=== PATIENT | female | born 1975 | race Caucasian/White ===

== ENCOUNTER 2023-09-17 16:44 | Emergency (ER) | payer SELFPAY ==
[~2023-09-17] VITALS: Ht 157.5 cm; Wt 64.0 kg
[2023-09-17 18:08] VITALS: PULSE 95; RESP 25; TEMP 98.3
[2023-09-17] MEDS ORDERED: OLANZapine **IM** 10 mg inj. IM ONE (18:20)
[2023-09-17 19:20] LABS: BASOPHILS % (AUTO) 0.5 % (0-1); EOSINOPHILS # (AUTO) 0.1 X10'3 (0-0.9); HEMATOCRIT 38.9 % (35.0-45.0); HEMOGLOBIN 13.1 g/dl (12.0-16.0); LYMPHOCYTES # (AUTO) 2.4 X10'3 (1.1-4.8); LYMPHOCYTES % (AUTO) 29.9 % (21-51); MEAN CORPUSCULAR HEMOGLOBIN 32.3 PG (27.0-31.0); MEAN CORPUSCULAR HGB CONC 33.6 g/dL (33.0-36.5); MEAN CORPUSCULAR VOLUME 96.1 FL (78-98); MEAN PLATELET VOLUME 6.8 FL (7.4-10.4); MONOCYTES # (AUTO) 0.8 X10'3 (0-0.9); MONOCYTES % (AUTO) 10.5 % (2-12); NEUTROPHILS # (AUTO) 4.6 X10'3 (1.8-7.7); NEUTROPHILS % (AUTO) 58.1 % (42-75); PLATELET COUNT 372 X10'3 (140-440); RED BLOOD COUNT 4.05 X10'6 (4.20-5.60); RED CELL DISTRIBUTION WIDTH 13.4 % (11.5-14.5); WHITE BLOOD COUNT 7.9 X10'3 (4.5-11.0)
[2023-09-17 19:42] LABS: URINE HCG NEGATIVE (NEG)
[2023-09-17 19:43] LABS: ALANINE AMINOTRANSFERASE 33 U/L (12-78); ALBUMIN 3.6 G/DL (3.4-5.0); ALBUMIN/GLOBULIN RATIO 0.9 (1.1-1.5); ALKALINE PHOSPHATASE 93 IU/L (46-116); ANION GAP 10 (8-16); ASPARTATE AMINO TRANSFERASE 22 U/L (10-37); BILIRUBIN,TOTAL 0.4 MG/DL (0.1-1.0); BLOOD UREA NITROGEN 19 MG/DL (7-18); BUN/CREATININE RATIO 22.6 (10.0-20.0); CALCIUM 9.3 MG/DL (8.5-10.1); CHLORIDE 105 MMOL/L (99-107); CREATININE 0.84 MG/DL (0.40-0.90); GLUCOSE 86 MG/DL (70-104); POTASSIUM 3.5 MMOL/L (3.5-5.1); SODIUM 139 MMOL/L (135-145); TOTAL PROTEIN 7.4 G/DL (6.4-8.2); eCRCL 64 ML/MIN; eGFR 72 ML/MIN
[2023-09-17 19:47] LABS: ETHANOL < 10 MG/DL (<10); THYROID STIMULATING HORMONE 6.09 ulU/ml (0.34-4.50)
[2023-09-17 19:57] LABS: URINE AMPHETAMINE SCREEN POSITIVE (Neg); URINE BARBITUATE SCREEN NEGATIVE (Neg); URINE BENZODIAZEPINES SCREEN NEGATIVE (Neg); URINE CANNABINOID SCREEN POSITIVE (Neg); URINE COCAINE SCREEN NEGATIVE (Neg); URINE METHADONE SCREEN NEGATIVE (Neg); URINE OPIATE SCREEN NEGATIVE (Neg); URINE PHENCYCLIDINE SCREEN NEGATIVE (Neg)
[2023-09-17 20:08] LABS: BILIRUBIN,URINE NEGATIVE (Neg); CLARITY,URINE SLIGHTLY CLOUDY (Clear); COLOR,URINE YELLOW (Yellow); GLUCOSE, URINE NEGATIVE (Neg); KETONES,URINE TRACE mg/dl (Neg); LEUKOCYTE ESTERASE ,URINE NEGATIVE (Neg); NITRITES, URINE POSITIVE (Neg); OCCULT BLOOD,URINE SMALL (Neg); PH,URINE 5.5 (4.8-8.0); PROTEIN,URINE NEGATIVE (Neg); UROBILINOGEN,URINE 0.2 E.U/dL (0.2-1.0)
[2023-09-17 20:27] LABS: UA COLLECTION TYPE CLN CATCH MIDSTREAM
[2023-09-17 20:31] LABS: BACTERIA,URINE 2+ /HPF (Neg); CAL OXALATE CRYSTALS 4+ /HPF (NEGATIVE); MUCUS STRANDS MANY /LPF (Neg); SQUAMOUS EPITHELIAL CELL,UR MANY /LPF (FEW); WBC,URINE 0-4 /HPF (0-4)
[2023-09-17 20:33] LABS: HYALINE CASTS 0-3 /LPF (NEGATIVE)
== END 2023-09-17 21:49 | disposition home or self-care (01) ==
LOC: ER 16:45
DX: F15.10 Other stimulant abuse, uncomplicated (principal); Z20.822 Contact with and (suspected) exposure to COVID-19; E03.9 Hypothyroidism, unspecified
CPT/HCPCS: 36415; 80053; 80305; 80320; 81001; 81025; 84443; 85025; 87811; 96372; 99283; J3490

== ENCOUNTER 2023-11-13 13:28 | Emergency (ER) | payer MEDICAID ==
[~2023-11-13] VITALS: Ht 157.5 cm; Wt 66.4 kg
[2023-11-13 13:50] VITALS: BP 126/54; PULSE 69; RESP 16; TEMP 98.7; O2SAT 98
[2023-11-13 14:58] LABS: URINE HCG NEGATIVE (NEG)
[2023-11-13 15:01] LABS: BILIRUBIN,URINE NEGATIVE (Neg); CLARITY,URINE CLEAR (Clear); COLOR,URINE STRAW (Yellow); GLUCOSE, URINE NEGATIVE (Neg); KETONES,URINE NEGATIVE (Neg); LEUKOCYTE ESTERASE ,URINE TRACE (Neg); NITRITES, URINE NEGATIVE (Neg); OCCULT BLOOD,URINE NEGATIVE (Neg); PROTEIN,URINE NEGATIVE (Neg); UROBILINOGEN,URINE 0.2 E.U/dL (0.2-1.0)
[2023-11-13 15:08] LABS: UA COLLECTION TYPE CLN CATCH MIDSTREAM
[2023-11-13 15:09] LABS: SQUAMOUS EPITHELIAL CELL,UR MODERATE /LPF (FEW)
[2023-11-13 15:10] LABS: BACTERIA,URINE NONE SEEN /HPF (Neg); RBC,URINE 0-2 /HPF (0-2); WBC,URINE 0-4 /HPF (0-4)
[2023-11-13] MEDS ORDERED: METR-349 PO (16:54)
== END 2023-11-13 17:18 | disposition home or self-care (01) ==
LOC: ER 13:28
DX: N76.0 Acute vaginitis (principal)
CPT/HCPCS: 81001; 81025; 87077; 87088; 87186; 99283

== ENCOUNTER 2024-02-28 09:10 | Emergency (ER) | payer MEDICAID ==
[~2024-02-28] VITALS: Ht 162.6 cm; Wt 60.0 kg
[2024-02-28 09:11] VITALS: BP 125/65; PULSE 82; RESP 18; TEMP 98.9; O2SAT 99
== END 2024-02-28 09:48 | disposition home or self-care (01) ==
LOC: ER 09:11
DX: T18.198A Other foreign object in esophagus causing other injury, initial encounter (principal); Z88.5 Allergy status to narcotic agent; W44.8XXA Other foreign body entering into or through a natural orifice, initial encounter; Y93.89 Activity, other specified; Y92.89 Other specified places as the place of occurrence of the external cause; Y99.8 Other external cause status
CPT/HCPCS: 99281

== ENCOUNTER 2025-02-19 12:17 | Emergency (ER) | payer MEDICAID ==
[~2025-02-19] VITALS: Ht 157.5 cm; Wt 63.9 kg
--- NOTE | 2025-02-19 12:37 | ELECTROCARDIOGRAPH REPORT ---
[facility] Test Date: 2025-02-19 Test Time: 12:22:43 Pat Name: ELVIS PERRY Department: EMERGENCY ROOM Patient ID: [id number] Room: Gender: F [employer]: DOMINGO : 1975 Requested By: SHIMA DEGROOT Order Number: [id number] Reading MD: Dr. Dom Paulson Measurements Intervals [place] Rate: 93 P: 23 TX: 159 QRS: 66 QRSD: 96 T: 1 QT: 349 QTc: 435 Interpretive Statements Sinus rhythm Borderline T wave abnormalities Electronically Signed On 02-19-2025 17:20:[address] Dom Paulson Please click the below link to view image of tracing.
--- NOTE | 2025-02-19 12:38 | Physician Documentation ---
History of Present Illness ~ Chief Complaint: Palpitations Stated Complaint: HIGH BP/PALPITATIONS HX TACHYCARDIA Time Seen by MD: 15:43 Primary Medical Doctor: AMOS GARDUNO This is a 50-year-old female who presents to the emergency department today due to palpitations. She denies any shortness of breath or chest pain. She reports that she has a history of palpitations over the last several years, and has been told that if they persist, she may need an ablation. Patient also states that she is almost two months late on her. Even though she has had one tube tied and has had another tube and ovary removed. Patient would like a test today. Patient denies any abdominal pain or vaginal bleeding or discharge. Medication Reconciliation Allergies: Coded Allergies: codeine (Verified Allergy, Unknown, 11/13/23) morphine (Verified Allergy, Unknown, 11/13/23) Review of Systems ROS As stated above in the HPI, otherwise all systems are reviewed and negative. Physical Exam Vital Signs: Temperature: 97.7, Source: Temporal, Heart Rate: 83, Respiratory Rate: 16, BP: 137/86, Pulse Oximetry: 98, Weight: 63.900 Oxygen Flow Rate: 0 Physical Exam General: Alert, no apparent distress. Neck: Full range of motion. Respiratory: Lungs clear, no respiratory distress. Chest: No accessory muscle use. Cardiovascular: Regular rate and rhythm, no murmurs. Gastrointestinal: Soft, nontender, nondistended. Bowels sounds present. Extremities: Normal range of motion, no deformity. Neurologic: Oriented x4. Psychiatric: Normal mood and affect. Skin: Normal color, warm and dry. No edema, no ecchymosis. Progress Results/Orders Results/Orders Orders - ISSAC HERNANDEZ PAC Hcg, Ur Ql (02/19/25 16:00) Urinalysis, Cult If Indicated (02/19/25 16:00) Electrocardiogram (02/19/25 16:03) Chest,Single View (02/19/25 16:03) Hs Troponin I W Calculations (02/19/25 18:03) Hs Troponin I W Calculations (02/19/25 19:03) Completed Orders - ISSAC HERNANDEZ PAC Cbc/Diff (02/19/25 16:03) MG (02/19/25 16:03) PBNP (02/19/25 16:03) Chest,Single View (02/19/25 16:03) BMP (02/19/25 16:03) Hs Troponin I W Calculations (02/19/25 16:03) Vital Signs 02/19/25 12:34 Temp 97.7 Pulse 83 Resp 16 B/P (MAP) 137/86 Pulse Ox 98 O2 Flow Rate 0 Laboratory Tests Test 02/19/25 12:28 White Blood Count 5.8 Red Blood Count 4.23 Hemoglobin 13.2 Hematocrit 38.5 Mean Corpuscular Volume 91.1 Mean Corpuscular Hemoglobin 31.2 H Mean Corpuscular Hemoglobin Concent 34.2 Red Cell Distribution Width 12.7 Platelet Count 318 Mean Platelet Volume 7.8 Neutrophils (%) (Auto) 52.5 Lymphocytes (%) (Auto) 41.3 Monocytes (%) (Auto) 5.2 Eosinophils (%) (Auto) 0.5 Basophils (%) (Auto) 0.5 Neutrophils # (Auto) 3.0 Lymphocytes # (Auto) 2.4 Monocytes # (Auto) 0.3 Eosinophils # (Auto) 0.0 Basophils # (Auto) 0.0 CBC Comment Sodium Level 144 Potassium Level 4.4 Chloride Level 106 Carbon Dioxide Level 28.1 Anion Gap 10 Blood Urea Nitrogen 14 Creatinine 0.84 Estimated GFR/1.73 m2 71 BUN/Creatinine Ratio 16.7 Glucose Level 76 Calcium Level 9.2 Magnesium Level 2.2 Troponin I High Sensitivity 8 Pro-B-Type Natriuretic Peptide 57 Albumin 4.3 Chemistry Comments EKG/XRAY/CT/US/VASC/MRI EKG : Additional Comment 1222 EKG interpreted to shows RSR rate of [address] segment elevation. QTC 435 ms. EKG interpreted by myself today shows regular rate at 93 beats per minute, normal sinus rhythm, no axis deviation, no ST segment elevation or sign of ischemic changes. Chest X-Ray : Additional Comments Chest x-ray interpreted by myself today shows no sign of large infiltrate, no large effusion, normal mediastinum. DIAGNOSTIC RADIOLOGY Patient: ELVIS PERRY Medical Record: [id number] [facility] 1975, Age: 50 Sex: Female Location: ER Patient Status: REG ER Service Date/Time: 02/19/251602 Ordering Physician: ISSAC HERNANDEZ PAC Exam: CHEST,SINGLE VIEW CHEST RADIOGRAPH Indication: CP Technique: Single frontal view of the chest was obtained COMPARISON: None FINDINGS: Lines and Tubes: None Lungs: Clear Pleura: No effusion. No pneumothorax. Cardiomediastinal contours: Unremarkable Bones: Unremarkable IMPRESSION: No acute disease. Electronically Signed by:HARI KIRKLAND MD Date & Time: 02/19/251621 Dictated by: HARI KIRKLAND MD Dictation date and time: 02/19/251621 Primary Care Provider: NO PRIMARY CARE PROVIDER cc: ISSAC HERNANDEZ PAC ~ Heart Score: Heart Score Response (Comments) Value History Slightly Suspicious 0 EKG Normal 0 Age 45-64 1 Risk Factors 1 or 2 risk factors 1 Total 2 Medical Decision Making Findings This is a 50-year-old female who presents to the emergency department today due to palpitations. She denies any shortness of breath or chest pain. She reports that she has a history of palpitations over the last several years, and has been told that if they persist, she may need an ablation. Patient also states that she is almost two months late on her. Even though she has had one tube tied and has had another tube and ovary removed. Patient would like a test today. Patient denies any abdominal pain or vaginal bleeding or discharge. Patient did have lab work and chest x-ray and EKG that returned unremarkable. Shared decision-making utilized with the patient today. Patient will follow up with cardiology for possible Holter monitor testing. Patient will return to ED with any worsening, concerning or changing symptoms. Differential Dx:Considerations: Include anxiety/panic attack, Include digoxin toxicity, Include electrolyte disorder, Include heart failure, Include hyperthyroidism, Include hyperventilation, Include hypoxia, Include pacemaker malfunction, Include pulmonary embolus, Include renal failure Departure Disposition: HOME / SELF CARE / HOMELESS Impression: Primary Impression: Palpitations Condition: Stable Discharge Instructions: Palpitations, [id number] Additional Instructions: Patient did have lab work and chest x-ray and EKG that returned unremarkable. Shared decision-making utilized with the patient today. Patient will follow up with cardiology for possible Holter monitor testing. Patient will return to ED with any worsening, concerning or changing symptoms. Referrals: NO PRIMARY CARE PROVIDER (PCP) Signature Scribe Signature: no scribe Attestation: No scribe ALVERTO FLORES NP February 19, 2025 12:38 ISSAC HERNANDEZ PAC February 19, 2025 16:04
[2025-02-19 16:26] LABS: BASOPHILS % (AUTO) 0.5 % (0-1); EOSINOPHILS % (AUTO) 0.5 % (0-6); HEMATOCRIT 38.5 % (35.0-45.0); HEMOGLOBIN 13.2 g/dl (12.0-16.0); LYMPHOCYTES # (AUTO) 2.4 X10'3 (1.1-4.8); LYMPHOCYTES % (AUTO) 41.3 % (21-51); MEAN CORPUSCULAR HEMOGLOBIN 31.2 PG (27.0-31.0); MEAN CORPUSCULAR HGB CONC 34.2 g/dL (33.0-36.5); MEAN CORPUSCULAR VOLUME 91.1 FL (78-98); MEAN PLATELET VOLUME 7.8 FL (7.4-10.4); MONOCYTES # (AUTO) 0.3 X10'3 (0-0.9); MONOCYTES % (AUTO) 5.2 % (2-12); NEUTROPHILS % (AUTO) 52.5 % (42-75); PLATELET COUNT 318 X10'3 (140-440); RED BLOOD COUNT 4.23 X10'6 (4.20-5.60); RED CELL DISTRIBUTION WIDTH 12.7 % (11.5-14.5); WHITE BLOOD COUNT 5.8 X10'3 (4.5-11.0)
--- NOTE | 2025-02-19 16:27 | RADIOLOGY REPORT ---
CHEST RADIOGRAPH Indication: CP Technique: Single frontal view of the chest was obtained COMPARISON: None FINDINGS: Lines and Tubes: None Lungs: Clear Pleura: No effusion. No pneumothorax. Cardiomediastinal contours: Unremarkable Bones: Unremarkable IMPRESSION: No acute disease.
[2025-02-19 16:30] LABS: ALBUMIN 4.3 G/DL (3.4-5.0); ANION GAP 10 (8-16); BLOOD UREA NITROGEN 14 MG/DL (7-18); BUN/CREATININE RATIO 16.7 (10.0-20.0); CALCIUM 9.2 MG/DL (8.5-10.1); CHLORIDE 106 MMOL/L (99-107); CREATININE 0.84 MG/DL (0.40-0.90); GLUCOSE 76 MG/DL (70-104); MAGNESIUM 2.2 MG/DL (1.5-2.4); POTASSIUM 4.4 MMOL/L (3.5-5.1); PRO BRAIN NATRIURETIC PEPTIDE 57 PG/ML (0-125); SODIUM 144 MMOL/L (135-145); TOTAL CARBON DIOXIDE 28.1 MMOL/L (24-32); eCRCL 63 ML/MIN; eGFR 71 ML/MIN
[2025-02-19 17:36] LABS: URINE HCG NEGATIVE (NEG)
[2025-02-19 17:38] LABS: BILIRUBIN,URINE NEGATIVE (Neg); CLARITY,URINE CLEAR (Clear); COLOR,URINE YELLOW (Yellow); GLUCOSE, URINE NEGATIVE (Neg); KETONES,URINE NEGATIVE (Neg); LEUKOCYTE ESTERASE ,URINE NEGATIVE (Neg); NITRITES, URINE NEGATIVE (Neg); OCCULT BLOOD,URINE SMALL (Neg); PROTEIN,URINE NEGATIVE (Neg); UROBILINOGEN,URINE 0.2 E.U/dL (0.2-1.0)
[2025-02-19 17:41] VITALS: BP 122/71; PULSE 80; RESP 16; TEMP 97.7; O2SAT 98
[2025-02-19 17:44] LABS: UA COLLECTION TYPE CLN CATCH MIDSTREAM
[2025-02-19 17:46] LABS: BACTERIA,URINE NONE SEEN /HPF (Neg); CAL OXALATE CRYSTALS FEW /HPF (NEGATIVE); SQUAMOUS EPITHELIAL CELL,UR FEW /LPF (FEW); WBC,URINE 0-4 /HPF (0-4)
== END 2025-02-19 17:40 | disposition home or self-care (01) ==
LOC: ER 12:17
DX: R00.2 Palpitations (principal); Z88.5 Allergy status to narcotic agent
CPT/HCPCS: 36415; 71045; 80048; 81001; 81025; 83735; 83880; 84484; 85025; 93005; 99285

== ENCOUNTER 2025-05-24 22:48 | Emergency (ER) | payer MEDICAID ==
[~2025-05-24] VITALS: Ht 157.5 cm; Wt 63.2 kg
--- NOTE | 2025-05-25 | Physician Documentation ---
HPI ~ General Chief Complaint: Tooth Problem Stated Complaint: DENTAL INFECTION Time Seen by MD: 23:45 Primary Medical Doctor: AMOS History of Present Illness HPI Comment Patient is a 50-year-old female that presents to the emergency department for evaluation of right-sided lower tooth pain. Patient reports that she has had significant issues with this tooth for some time and has been to the dentist I suggested she have a root canal but she would like the tooth pulled. She reports that she has been taking ibuprofen for the discomfort but the tooth is still very painful. Patient denies any other significant past medical history it is time. Medication Reconciliation Allergies: Coded Allergies: codeine (Verified Allergy, Unknown, 11/13/23) morphine (Verified Allergy, Unknown, 11/13/23) Review of Systems ROS As stated above in the HPI, otherwise all systems are reviewed and negative. Physical Exam Vital Signs: Temperature: 98.0, Heart Rate: 74, Respiratory Rate: 16, BP: 157 /78, Pulse Oximetry: 100, Weight: 63.180 Oxygen Flow Rate: 0 Physical Exam VITALS: Reviewed and as above. GENERAL: Alert, no apparent distress. HEENT: Normocephalic, atraumatic, PERRL, EOMI, dry mucosa, no erythema, swelling to jaycob gum line of the left lower mandible, no lymphadenopathy noted RESPIRATORY: Lungs clear, normal breath sounds, no respiratory distress. CHEST: No accessory muscle use, no retractions CV: Regular rate, rhythm, no edema, no murmur, No: JVD GI: Soft, non-tender, bowels sounds present, no rebound, guarding, or rigidity BACK: No CVA tenderness, or swelling MUSCULOSKELETAL No deformities, no edema SKIN: Warm and dry, no rash NEURO: Oriented x4, No motor or sensory deficit PSYCH: Normal mood and affect, no agitation Progress Results/Orders Results/Orders Vital Signs 05/24/25 22:50 Temp 98.0 Pulse 74 Resp 16 B/P (MAP) 157/78 Pulse Ox 100 O2 Flow Rate 0 Medical Decision Making Findings Patient presents for dental pain due to suspected dental wilmer. Patient not immunosuppressed, afebrile and well appearing with patent airway, have low suspicfion for deep space infection or any concern for airway compromise. Based on history, physical, and work up. No evidence of tooth fracture, avulsion, or bleeding socket. No evidence of RPA, [employer], Ludwigs angina, periapical abscess. Instructed patient to continue to treat pain with ibuprofen/acetaminophen until they see a dentist. It is pain medication prescribed Patient discharged home and will follow up with dentist. Discussed return precautions for odontogenic infections and other dental pain emergencies. Patient will follow up with the primary care provider and dentist. Patient will return to the emergency department with any worsening of current symptoms or any additional concerning symptoms present. Departure Disposition: HOME / SELF CARE / HOMELESS Impression: Primary Impression: Toothache Additional Impression: Dental abscess Additional Impression Text Patient presents for dental pain due to suspected dental wilmer. Patient not immunosuppressed, afebrile and well appearing with patent airway, have low suspicfion for deep space infection or any concern for airway compromise. Based on history, physical, and work up. No evidence of tooth fracture, avulsion, or bleeding socket. No evidence of RPA, [employer], Ludwigs angina, periapical abscess. Instructed patient to continue to treat pain with ibuprofen/acetaminophen until they see a dentist. It is pain medication prescribed Patient discharged home and will follow up with dentist. Discussed return precautions for odontogenic infections and other dental pain emergencies. Patient will follow up with the primary care provider and dentist. Patient will return to the emergency department with any worsening of current symptoms or any additional concerning symptoms present. Condition: Stable Referrals: NO PRIMARY CARE PROVIDER (PCP) Prescriptions Hydrocodone Bit/Acetaminophen 5/325 MG ([place] 5/325 MG) 5 Mg/325 Mg Tablet 1 TAB PO Q6H PRN for pain for 3 Days, #12 TAB Prov: DEZ BARNETT 05/25/25 Amox Tr/Potassium Clavulanate (Augmentin 875-125 Tablet) 1 Each Tablet 1 TAB PO Q12H for 10 Days, #20 TAB Prov: DEZ BARNETT 05/25/25 Education Educated: Patient Educated regarding: diagnosis, treatment, need for follow up Signature Scribe Signature: A Attestation: Scribed for Dez Barnett by LORETTA Sorto . 05/25/25 00:04 DEZ BARNETT May 25, 2025 00:00
[2025-05-25] MEDS ORDERED: HYDR-3965 PO (00:03)
[2025-05-25] MEDS ORDERED: AMOX-117 PO (00:03)
[2025-05-25 00:10] VITALS: BP 155/76; PULSE 72; RESP 18; TEMP 98.6; O2SAT 99
== END 2025-05-25 00:11 | disposition home or self-care (01) ==
LOC: ER 22:48
DX: K04.7 Periapical abscess without sinus (principal); Z88.5 Allergy status to narcotic agent
CPT/HCPCS: 99283

== ENCOUNTER 2025-07-20 14:08 | Emergency (ER) | payer MEDICAID ==
[~2025-07-20] VITALS: Ht 157.5 cm; Wt 62.8 kg
[2025-07-20 14:12] VITALS: BP 147/70; PULSE 74; RESP 18; O2SAT 99
[2025-07-20 14:37] LABS: LEUKOCYTE ESTERASE ,URINE NEGATIVE (Neg); NITRITES, URINE NEGATIVE (Neg); OCCULT BLOOD,URINE TRACE-INTACT (Neg)
[2025-07-20 14:49] LABS: UA COLLECTION TYPE CLN CATCH MIDSTREAM
[2025-07-20 14:50] LABS: MUCUS STRANDS FEW /LPF (Neg); RENAL CELLS, URINE MODERATE /HPF; SQUAMOUS EPITHELIAL CELL,UR MANY /LPF (FEW)
[2025-07-20 14:50] LABS: HCG SERUM QL NEGATIVE
--- NOTE | 2025-07-20 17:01 | Physician Documentation ---
History of Present Illness ~ Chief Complaint: Complications Stated Complaint: PRENANCY TEST Time Seen by MD: 16:53 Primary Medical Doctor: AMOS GARDUNO Patient is seen today with complaints of having taken three positive home tests and recently having missed her menstrual cycle. Patient denies any abdominal pain or chest pain or shortness of breath or nausea, vomiting, diarrhea. Patient has no other concern or complaint at this time. Medication Reconciliation Allergies: Coded Allergies: codeine (Verified Allergy, Unknown, 11/13/23) morphine (Verified Allergy, Unknown, 11/13/23) Review of Systems Constitutional: Denies: chills, fever, weakness Eyes: Denies: pain, blurred vision ENT: Denies: ear pain, nose pain, throat pain, mouth pain Respiratory: Denies: cough, shortness of breath Cardiovascular: Denies: chest pain, palpitations Gastrointestinal: Denies: abdominal pain, nausea, vomiting Genitourinary: Denies: burning, dysuria Female Genitalia: Denies: vaginal discharge, pelvic pain Neurological: Denies: headache, dizziness Musculoskeletal: Denies: pain, swelling Integumentary: Denies: rash, lesions Allergic/Immunologic: Denies: hives, itching Hematologic/Lymphatic: Denies: no symptoms reported Psychiatric: Denies: depression, anxiety Physical Exam Physical Exam Vital Signs: Temperature: 98.6, Source: Temporal, Heart Rate: 74, Respiratory Rate: 18, BP: 147/70, Pulse Oximetry: 99, Weight: 62.800 Oxygen Flow Rate: 0 Physical Exam General: Awake and Alert, no acute distress. HEENT: Conjunctiva pink, Sclera clear, Mucus Membranes moist. Neck: Supple without masses and tenderness. Resp: Unlabored. Lungs clear to auscultation bilaterally. Heart: Regular Rate and rhythm, normal S1 and S2 without murmur, rub or gallop. Abdomen: Soft and non tender no organomegaly Extremities: No cyanosis,clubbing or edema. Skin: Warm and Dry. Progress Results/Orders Results/Orders Vital Signs 07/20/25 14:12 Temp 98.6 Pulse 74 Resp 18 B/P (MAP) 147/70 Pulse Ox 99 O2 Flow Rate 0 Laboratory Tests Test 07/20/25 14:15 07/20/25 14:23 Urine Specimen Description Cln catch midstream Urine Color Straw Urine Clarity Cloudy Urine pH 7.0 Urine Specific [place] 1.010 Urine Protein Negative Urine Glucose (UA) Negative Urine Ketones Negative Urine Occult Blood Trace-intact Urine Nitrite Negative Urine Bilirubin Negative Urine Urobilinogen 0.2 Urine Leukocyte Esterase Negative Urine RBC 0-2 Urine WBC 0-4 Urine Squamous Epithelial Cells Many Urine Transitional Epithelial Cells Moderate Urine Renal Cells Moderate Urine Bacteria Few Urine Mucus Few Urine Culture Indicated Not ind Volume Urine Centrifuged 10 ml Urine Comment Human Chorionic Gonadotropin, Qual Negative HCG Beta Subunit < 1.0 Medical Decision Making Findings Patient is seen today with complaints of having taken three positive home tests and recently having missed her menstrual cycle. Patient denies any abdominal pain or chest pain or shortness of breath or nausea, vomiting, diarrhea. Patient has no other concern or complaint at this time. Patient did have negative hCG in the ED today. Urinalysis was unremarkable. Patient will follow up with OB/Gynecology and/or primary care. Patient will return to ED with any worsening, concerning or changing symptoms. Departure Disposition: HOME / SELF CARE / HOMELESS Impression: Primary Impression: Positive home test Additional Impression: Menstrual changes Condition: Stable Additional Instructions: Patient did have negative hCG in the ED today. Urinalysis was unremarkable. Patient will follow up with OB/Gynecology and/or primary care. Patient will return to ED with any worsening, concerning or changing symptoms. Referrals: NO PRIMARY CARE PROVIDER (PCP) Signature Scribe Signature: No scribe Attestation: No scribe ISSAC HERNANDEZ Jul 20, 2025 17:01
[2025-07-20 17:29] VITALS: TEMP 98.6
== END 2025-07-20 17:31 | disposition home or self-care (01) ==
LOC: ER 14:09
DX: Z32.00 Encounter for pregnancy test, result unknown (principal); N92.6 Irregular menstruation, unspecified; Z88.5 Allergy status to narcotic agent
CPT/HCPCS: 36415; 81001; 84702; 84703; 99283